=== PATIENT | female | born 1990 | race Two or more races ===

== ENCOUNTER 2023-11-07 12:52 | Emergency (ER) | payer SELFPAY ==
[2023-11-07 13:01] VITALS: RESP 18; BMI 21.3
[2023-11-07] MEDS ORDERED: ACETAMINOPHEN 500 MG TABLET (FP) PO ONE (16:21)
[2023-11-07] MEDS ORDERED: ACETAMINOPHEN 500 MG TABLET (FP) ONE (17:52)
[2023-11-07 17:55] VITALS: BP 127/79; PULSE 108; TEMP 99.4
[2023-11-07 17:56] LABS: BASO % 0.6 % (0-2.0); EOS % 1.9 % (0-4.5); HEMATOCRIT 40.3 % (32.4-45.2); HEMOGLOBIN 12.9 GM/dL (10.7-15.3); LYMPH % 20.3 % (8-40); MCH 24.9 pg (25.7-33.7); MCHC 32.1 g/dl (32.0-36.0); MEAN CELL VOLUME 77.7 fl (80-96); MONO % 4.5 % (3.8-10.2); NEUT % 72.7 % (42.8-82.8); PLATELET COUNT 165 10^3/uL (134-434); RBC 5.18 M/mm3 (3.60-5.2); RDW 19.2 % (11.6-15.6)
[2023-11-07 18:00] LABS: HCG,QUALITATIVE URINE Positive
[2023-11-07 18:01] LABS: EPI CELLS >36 /uL (0-25.1); HYALINE CASTS 11 /uL (0-3.1); URINE APPEARANCE CLOUDY; URINE BACTERIA 7208 /uL (0-1359); URINE BILIRUBIN NEGATIVE (NEGATIVE); URINE COLOR YELLOW; URINE GLUCOSE (UA) NEGATIVE (NEGATIVE); URINE KETONE TRACE (NEGATIVE); URINE LEUK ESTERASE 1+ (NEGATIVE); URINE NITRITE NEGATIVE (NEGATIVE); URINE PROTEIN NEGATIVE (NEGATIVE); URINE UROBILINOGEN 0.2 mg/dL (0.2-1.0); URINE WBC 95 /uL (0-25.8)
[2023-11-07 18:14] LABS: POTASSIUM 3.9 mmol/L (3.5-5.1)
[2023-11-07 18:15] LABS: CALCIUM 11.8 mg/dL (8.5-10.1)
[2023-11-07 18:17] LABS: BLOOD UREA NITROGEN 7.2 mg/dL (7-18)
[2023-11-07 18:19] LABS: CREATININE 0.5 mg/dL (0.55-1.3)
[2023-11-07 19:23] LABS: URINE CRYSTALS FEW /hpf; URINE RBC 92.3 /uL (0-23.9); YEAST NONE SEEN (NEGATIVE)
== END 2023-11-07 19:14 | disposition home or self-care (01) ==
LOC: JER 12:52
DX: O20.9 Hemorrhage in early pregnancy, unspecified (principal); O23.41 Unspecified infection of urinary tract in pregnancy, first trimester; Z3A.09 9 weeks gestation of pregnancy; O26.891 Other specified pregnancy related conditions, first trimester; M54.50 Low back pain, unspecified
CPT/HCPCS: 36415; 76817-TC; 80048; 81003; 84702; 84703; 85025; 86850; 86900; 86901; 87086; 99284-25

== ENCOUNTER 2024-05-19 18:55 | Inpatient (IN) | payer OTHER ==
[2024-05-19] MEDS: LACTATED RINGERS SOLUTION 1,000 ML/1,000 ML INFUS.BAG IV SCH (20:15)
[2024-05-19 20:36] LABS: BASO % 0.4 % (0-2.0); EOS % 0.8 % (0-4.5); HEMATOCRIT 38.7 % (32.4-45.2); HEMOGLOBIN 13.1 GM/dL (10.7-15.3); LYMPH % 14.5 % (8-40); MCH 29.8 pg (25.7-33.7); MCHC 33.9 g/dl (32.0-36.0); MEAN PLT VOLUME 9.8 fl (7.5-11.1); MONO % 4.5 % (3.8-10.2); NEUT % 79.8 % (42.8-82.8); PLATELET COUNT 118 10^3/uL (134-434); RDW 14.7 % (11.6-15.6); WHITE BLOOD COUNT 11.5 K/mm3 (4.0-10.0)
[2024-05-19 20:42] LABS: INR 0.88 (0.83-1.09); PROTHROMBIN TIME (PATIENT) 10.2 SEC (9.7-13.0)
[2024-05-19 20:45] LABS: ACTIVATED PTT 26.9 SECONDS (25.2-36.5)
[2024-05-19 20:59] VITALS: BMI 32.2
[2024-05-19 21:01] LABS: POTASSIUM 4.1 mmol/L (3.5-5.1)
[2024-05-19 21:02] LABS: CALCIUM 10.7 mg/dL (8.5-10.1)
[2024-05-19 21:04] LABS: ALBUMIN 2.8 g/dl (3.4-5.0)
[2024-05-19] MEDS ORDERED: morphine SULFATE/PF 1 MG/2 ML (2cc Syringe - QUVA) ONE (21:05)
[2024-05-19] MEDS ORDERED: FENTANYL CITRATE/PF 50 MCG/ML VIAL ONE (21:05)
[2024-05-19 21:06] LABS: CREATININE 0.3 mg/dL (0.55-1.3); URIC ACID 4.1 mg/dL (2.6-7.2)
[2024-05-19 21:07] LABS: BILIRUBIN,TOTAL 0.9 mg/dL (0.2-1)
[2024-05-19 21:08] LABS: TOT PROT 6.7 g/dl (6.4-8.2)
[2024-05-19] MEDS: CITRIC ACID/SODIUM CITRATE 30 ML UNIT-DOSE CUP PO ONE (21:15)
[2024-05-19] MEDS ORDERED: OXYTOCIN 10 UNITS/ML VIAL ONE (21:42)
[2024-05-19] MEDS ORDERED: PHENYLEPHRINE HCL 10 MG/1 ML SINGLE DOSE VIAL ONE (21:42)
[2024-05-19] MEDS ORDERED: MIDAZOLAM HCL 2 MG/2 ML SINGLE DOSE VIAL ONE (22:02)
[2024-05-19] MEDS ORDERED: ONDANSETRON 4 MG/2 ML VIAL IVPUSH PRN (22:43)
[2024-05-19] MEDS ORDERED: ACETAMINOPHEN 325 MG TABLET (FP) PO PRN (22:43)
[2024-05-19] MEDS ORDERED: OXYTOCIN 20 UNITS in 0.9% NS 20 UNIT/1,000 ML INFUS.BAG IV ONE (23:41)
[2024-05-19] MEDS: OXYTOCIN 20 UNITS in 0.9% NS 20 UNIT/1,000 ML INFUS.BAG IV SCH (23:42)
[2024-05-20] MEDS: TERBUTALINE SULFATE 1 MG/1 ML VIAL SQ ONE (00:08)
[2024-05-20] MEDS ORDERED: ACETAMINOPHEN 325 MG TABLET (FP) PO PRN (00:35)
[2024-05-20] MEDS ORDERED: METHYLERGONOVINE MALEATE 0.2 MG/1 ML AMP IM PRN (00:35)
[2024-05-20] MEDS ORDERED: ACETAMINOPHEN 1000 MG/100 ML BAG IVPB PRN (00:39)
[2024-05-20 11:23] LABS: ALK PHOS 133 U/L (45-117); BILIRUBIN,TOTAL 0.7 mg/dL (0.2-1); CALCIUM 9.3 mg/dL (8.5-10.1); CHLORIDE 110 mmol/L (98-107); CO2 22 mmol/L (21-32); CREATININE 0.3 mg/dL (0.55-1.3); GLUCOSE,RANDOM 81 mg/dL (74-106); SGOT/AST 20 U/L (15-37); SGPT/ALT 14 U/L (13-61); SODIUM 139 mmol/L (136-145)
[2024-05-20] MEDS ORDERED: oxyCODONE HCL 5 MG TABLET PO PRN ×2 (12:36)
[2024-05-20] MEDS: IBUPROFEN 600 MG TABLET (FP) PO PRN (13:07)
[2024-05-21] MEDS ORDERED: BISACODYL 10 MG SUPP.RECT RC PRN (00:36)
[2024-05-21] MEDS: SIMETHICONE 80 MG TAB.CHEW (FP) PO PRN (01:00)
[2024-05-21] MEDS: IBUPROFEN 600 MG TABLET (FP) PO PRN (01:02)
[2024-05-21 09:41] LABS: BASO % 0.3 % (0-2.0); EOS % 0.6 % (0-4.5); HEMATOCRIT 35.3 % (32.4-45.2); HEMOGLOBIN 11.9 GM/dL (10.7-15.3); LYMPH % 16.1 % (8-40); MCH 30.2 pg (25.7-33.7); MCHC 33.7 g/dl (32.0-36.0); MEAN CELL VOLUME 89.5 fl (80-96); MEAN PLT VOLUME 9.4 fl (7.5-11.1); MONO % 5.4 % (3.8-10.2); NEUT % 77.6 % (42.8-82.8); PLATELET COUNT 105 10^3/uL (134-434); RBC 3.95 M/mm3 (3.60-5.2); RDW 14.4 % (11.6-15.6); WHITE BLOOD COUNT 9.3 K/mm3 (4.0-10.0)
[2024-05-21] MEDS: LABETALOL HCL 100 MG TABLET (FP) PO SCH (10:18)
[2024-05-21] MEDS: NIFEdipine E.R. 30 MG TABLET PO SCH (21:53)
[2024-05-22 16:35] VITALS: PULSE 85; RESP 17; TEMP 98
[2024-05-22 16:40] VITALS: BP 134/85
== END 2024-05-22 15:30 | disposition home or self-care (01) | DRG 540 ==
LOC: JERBED 18:55 → JLDR 19:58 → J3W 05-20 01:35
PROVIDERS: ADMIT Obstetrics & Gynecology Obstetrics; ATTEND Obstetrics & Gynecology Obstetrics
PROC: 10D00Z1 Extraction of Products of Conception, Low, Open Approach (ICD-10-PCS; principal; 2024-05-19)
DX: O32.1XX0 Maternal care for breech presentation, not applicable or unspecified (principal); O30.043 Twin pregnancy, dichorionic/diamniotic, third trimester; Z3A.37 37 weeks gestation of pregnancy; Z37.2 Twins, both liveborn
CPT/HCPCS: 36415; 80053; 82977; 83010; 84550; 85025; 85045; 85610; 85730; 86780; 86850; 86900; 86901; 88307-TC; 94010